=== PATIENT | male | born 1990 | race African-American/Black ===

== ENCOUNTER 2021-12-19 14:54 | Emergency (ER) | payer SELFPAY | END 2021-12-19 17:03 | disposition home or self-care (01) | LOC: CSHERS 14:54 | DX: S62.664A Nondisplaced fracture of distal phalanx of right ring finger, initial encounter for closed fracture (principal); W22.8XXA Striking against or struck by other objects, initial encounter | CPT/HCPCS: 26750 ==

== ENCOUNTER 2024-06-04 16:28 | Emergency (ER) | payer SELFPAY ==
[2024-06-04] MEDS ORDERED: HYDROcodone/Acetaminophen 5/325 mg Tablet ONE (19:01)
== END 2024-06-04 19:20 | disposition home or self-care (01) ==
LOC: CSHERS 16:28
DX: S52.221A Displaced transverse fracture of shaft of right ulna, initial encounter for closed fracture (principal); F17.210 Nicotine dependence, cigarettes, uncomplicated; W01.0XXA Fall on same level from slipping, tripping and stumbling without subsequent striking against object, initial encounter
CPT/HCPCS: 25530

== ENCOUNTER 2024-06-13 07:22 | Emergency (ER) | payer SELFPAY | END 2024-06-13 08:27 | disposition home or self-care (01) | LOC: CSHERS 07:22 | DX: S52.601A Unspecified fracture of lower end of right ulna, initial encounter for closed fracture (principal); F17.210 Nicotine dependence, cigarettes, uncomplicated; W22.8XXA Striking against or struck by other objects, initial encounter | CPT/HCPCS: 29105 ==